=== PATIENT | female | born 1970 | race Caucasian/White ===

== ENCOUNTER 2019-07-25 18:53 | Emergency (ER) | payer BC ==
[2019-07-25] MEDS ORDERED: Morphine 10 MG/ML VIAL ONE (19:21)
[2019-07-25] MEDS ORDERED: Acetaminophen 500 MG TAB ONE ×2 (19:22)
[2019-07-25] MEDS ORDERED: Morphine 4 MG/ML VIAL ONE (19:25)
--- NOTE | 2019-07-25 19:48 | RAD ---
THREE VIEWS LEFT FOOT: 07/25/19 HISTORY: Fall. Pain. Bruising. FINDINGS: Lisfranc alignment is maintained. Preserved joint spaces. No fracture, cortical irregularity or perio steal reaction. Dorsal midfoot soft tissue swelling. IMPRESSION: Soft tissue swelling, without evidence of fracture. POS: [facility]PP
== END 2019-07-25 19:50 | disposition home or self-care (01) ==
LOC: ERS 18:53
DX: S90.32XA Contusion of left foot, initial encounter (principal); F32.9 Major depressive disorder, single episode, unspecified; W01.0XXA Fall on same level from slipping, tripping and stumbling without subsequent striking against object, initial encounter
CPT/HCPCS: 96372; J2270